=== PATIENT | female | born 1980 | race Caucasian/White ===

== ENCOUNTER 2023-01-01 09:01 | Emergency (ER) | payer OTHER ==
[~2023-01-01] VITALS: Ht 172.7 cm; Wt 96.6 kg
[2023-01-01] MEDS ORDERED: ALDACTONE25 MG PO (09:12)
[2023-01-01] MEDS ORDERED: LEVOTHYROXINE25 MCG PO (09:13)
[2023-01-01] MEDS ORDERED: VERELAN PM200 MG (09:13)
[2023-01-01] MEDS ORDERED: VASOTEC20 M1 PO (09:13)
[2023-01-01] MEDS ORDERED: FLONASE ALLERG9.9 ML NASAL (10:49)
[2023-01-01] MEDS ORDERED: ZYRTEC10 M3 PO (10:49)
== END 2023-01-01 10:58 | disposition home or self-care (01) ==
LOC: ER 09:01
DX: B34.9 Viral infection, unspecified (principal); J31.0 Chronic rhinitis; I10 Essential (primary) hypertension; Z88.0 Allergy status to penicillin

== ENCOUNTER 2025-05-10 09:04 | Emergency (ER) | payer OTHER ==
[~2025-05-10] VITALS: Ht 172.7 cm; Wt 108.0 kg
[~2025-05-10 09:04] MED LIST: ALDACTONE25 MG PO; COZAAR100 MG PO; FLONASE ALLERG9.9 ML NASAL; LEVOTHYROXINE25 MCG PO; VASOTEC20 M1 PO; VERELAN PM200 MG; ZYRTEC10 M3 PO
[2025-05-10] MEDS ORDERED: BENZONATATE 100 MG CAPSULE PO ONE (10:45)
[2025-05-10] MEDS ORDERED: DEXAMETHASONE SODIUM PHOSPHATE 4 MG/ML VIAL IM ONE (10:45)
[2025-05-10] MEDS ORDERED: GUAIFENESIN 200 MG/10 ML BLIST.PACK PO ONE ×2 (10:45→11:25)
[2025-05-10] MEDS ORDERED: ACETAMINOPHEN 500 MG GEL..CAP PO ONE ×2 (10:45→12:13)
[2025-05-10] MEDS ORDERED: DEXAMETHASONE SODIUM PHOSPHATE 4 MG/ML VIAL ONE (11:25)
[2025-05-10 12:51] LABS: BASO % 0.2 % (0.1-1.2); EOS # 0.22 (0.04-0.54); EOS % 2.5 % (0.7-7.0); LYMPH # 1.72 (1.18-3.74); LYMPH % 19.6 % (19.3-53.1); MEAN PLATELET VOLUME 10.70 fl (9.4-12.4); MONO # 0.55 (0.24-0.82); MONO % 6.3 % (4.7-12.5); NEUT # 6.24 (1.56-6.13); NEUT % 71.1 % (34.0-71.1); RED CELL DISTRIBUTION WIDTH 12.9 % (11.6-14.4)
[2025-05-10 13:14] LABS: COVID-19 AG NEGATIVE (NEGATIVE)
== END 2025-05-10 15:01 | disposition home or self-care (01) ==
LOC: ER 09:05
PROVIDERS: General Practice
DX: J06.9 Acute upper respiratory infection, unspecified (principal); Z88.0 Allergy status to penicillin; E03.8 Other specified hypothyroidism; I10 Essential (primary) hypertension; Z20.822 Contact with and (suspected) exposure to COVID-19